=== PATIENT | male | born 1990 | race Caucasian/White ===

== ENCOUNTER 2021-05-03 08:48 | Emergency (ER) | payer OTHER ==
[~2021-05-03] VITALS: Ht 167.6 cm; Wt 95.5 kg
[2021-05-03 08:50] VITALS: BP 124/86
[2021-05-03] MEDS ORDERED: KETOROLAC TROMETHAMINE 30 MG/ML VIAL IM ONE (09:15)
[2021-05-03] MEDS ORDERED: HYDROCODONE/ACETAMINOPHEN 5-325 MG TABLET PO ONE (09:15)
== END 2021-05-03 10:29 | disposition home or self-care (01) ==
LOC: EMS 08:51
DX: M54.16 Radiculopathy, lumbar region (principal)
CPT/HCPCS: 96372; 99283; J1885